=== PATIENT | female | born 1980 | race Caucasian/White ===

== ENCOUNTER 2019-02-02 00:51 | Inpatient (IN) | payer SELFPAY ==
[~2019-02-02] VITALS: Ht 152.4 cm; Wt 70.8 kg
[2019-02-02 01:16] VITALS: BP_SYST 123
--- NOTE | 2019-02-02 01:42 | NUR ---
Patient to ER bed 03 to gown for evaluation. Side rails up. Report given to YANIRA Correa.
--- NOTE | 2019-02-02 01:48 | NUR ---
patient arrived AOx4 from home with c/o lower backpain x 3 weeks that has gotten worse. patient states she also had RLQ abd pain. patient denies painful urination or otherwise. patient admits to pain twisting and lifting feet. patient has a stable gait. patient states she vomited x 1 at home and has nausa. however she has not vomitted here. no other complaint or injury at this time.
[2019-02-02 02:28] LABS: BILIRUBIN,URINE NEGATIVE (NEGATIVE); CLARITY/URINE CLEAR (CLEAR); COLOR,URINE YELLOW (YELLOW); GLUCOSE,URINE NEGATIVE (NEGATIVE); KETONES,URINE NEGATIVE (NEGATIVE); LEUKOCYTE ESTERASE ,URINE 1+ (NEGATIVE); NITRITE, URINE NEGATIVE (NEGATIVE); PROTEIN URINE TRACE (NEGATIVE); UROBILINOGEN,URINE 0.2 (0.2-1.0)
[2019-02-02 02:29] LABS: BLOOD, URINE TRACE (NEGATIVE)
--- NOTE | 2019-02-02 02:29 | NUR ---
ER at bedside examining patient.
--- NOTE | 2019-02-02 02:30 | NUR ---
patient cleaning teeth at bedside stated pain is 9/10.
[2019-02-02 02:33] LABS: BACTERIA,URINE FEW /HPF (None Seen); CALCIUM OXALATE CRYSTALS,UR 50-70 /HPF (None Seen)
[2019-02-02 02:44] LABS: BASOPHILS # (AUTO) 0.1 K/uL (0.0-0.2); BASOPHILS % (AUTO) 0.7 % (0.0-2.0); EOSINOPHILS # (AUTO) 0.2 K/uL (0.0-0.4); EOSINOPHILS % (AUTO) 2.9 % (0.0-4.0); HEMATOCRIT 30.9 % (36-48); HEMOGLOBIN 10.2 g/dL (12.0-16.0); LYMPHOCYTES # (AUTO) 1.6 K/uL (1.0-5.5); LYMPHOCYTES % (AUTO) 22.1 % (20.5-51.5); MEAN CORPUSCULAR HEMOGLOBIN 28 pg (27-31); MEAN CORPUSCULAR HGB CONC 33 % (32-36); MEAN CORPUSCULAR VOLUME 84 fL (79.0-98.0); MONOCYTES # (AUTO) 0.5 K/uL (0.0-1.0); MONOCYTES % (AUTO) 7.1 % (1.7-9.3); NEUTROPHILS # (AUTO) 4.8 K/uL (1.8-7.7); NEUTROPHILS % (AUTO) 67.2 % (40.0-70.0); PLATELET COUNT (AUTO) 248 K/uL (130-430); RED BLOOD CELL COUNT(AUTO) 3.66 MIL/uL (4.2-6.2); RED CELL DISTRIBUTION WIDTH 17.7 % (9.0-15.0); WHITE BLOOD COUNT (AUTO) 7.1 K/uL (4.8-10.8)
--- NOTE | 2019-02-02 02:44 | NUR ---
# 18 gauge angiocath placed to RAC. Use of asceptic technique. Opsite placed over site. Blood return noted. Blood for lab drawn from site. Flushed with 10 cc of normal saline. No evidence of infiltration noted. Patient tolerated well.
[2019-02-02] MEDS ORDERED: MORPHINE 4 MG/ML INJ. SYRINGE IVP ONE (02:45)
[2019-02-02] MEDS ORDERED: NACL 0.9% 1,000 ML IV ONE (02:45)
[2019-02-02] MEDS ORDERED: ONDANSETRON HCL 4 MG/2 ML VIAL IVP ONE (02:45)
[2019-02-02 02:56] LABS: CALCIUM 8.2 mg/dL (8.4-11.0); CREATININE 0.72 mg/dL (0.55-1.30)
--- NOTE | 2019-02-02 03:00 | NUR ---
patient went to radiology
[2019-02-02 03:02] LABS: ALBUMIN 3.2 g/dL (3.4-4.8); TOTAL BILIRUBIN 0.1 mg/dL (0.0-1.0)
[2019-02-02 03:04] LABS: POTASSIUM 2.7 mmol/L (3.5-5.1)
--- NOTE | 2019-02-02 03:15 | NUR ---
patient stated "I'm itchy." MD notifed.
[2019-02-02] MEDS ORDERED: MAGNESIUM SULFATE 50 ML IV ONE (03:30)
[2019-02-02] MEDS ORDERED: cefTRIAXone 1 GM IVPB PREMIX 50 ML IV ONE (03:45)
[2019-02-02] MEDS ORDERED: POTASSIUM CHLORIDE 20 MEQ TAB.PRT.SR PO ONE ×2 (03:45→12:30)
[2019-02-02] MEDS ORDERED: DIPHENHYDRAMINE HCL 25 MG CAPSULE PO ONE (04:00)
[2019-02-02] MEDS ORDERED: HYDR200T80 PO (04:37)
[2019-02-02] MEDS ORDERED: DULO60CA41 PO (04:37)
[2019-02-02] MEDS ORDERED: HYDR-4274 PO (04:38)
--- NOTE | 2019-02-02 04:38 | NUR ---
Medication reconciliation completed with information provided by PATIENT. Any prior medication reconciliation on file was reviewed and corrected.
--- NOTE | 2019-02-02 05:15 | NUR ---
ADMIT NOTE Received pt from ER to the floor with a diagnosis of hypokalemia. Admission process initiated. patient oriented to pain management, safety and call light-teach back done.
--- NOTE | 2019-02-02 05:15 | NUR ---
Transfer to Telemetry via ACLS protocol. Licensed nurse present. IV present no signs or symptoms of infiltration.
--- NOTE | 2019-02-02 05:15 | NUR ---
Patient will be admitted to care of Dr. Gomez. Admitted to Telemetry unit. Will go to room 117B. Belongings list completed. Summary report printed. Report will be given at bedside.
[2019-02-02 05:25] VITALS: BP_SYST 137
--- NOTE | 2019-02-02 06:30 | NUR ---
ADMISSION ASSESSMENT DONE. COMFORTABLE THIS TIME. MGSO4 RIDER STILL INFUSING. CALL LIGHT WITHIN REACH. BED IN LOW POSITION,. WILL GIVE REPORT TO AM RN.
--- NOTE | 2019-02-02 07:00 | NUR ---
CLOSING: ENDORSED CARE TO AM RN. PATIENT RESTING QUITELY. CALL LIGHT WITHIN REACH. BED IN LOW POSITION.
[2019-02-02 08:00] VITALS: BP_SYST 109
[2019-02-02] MEDS: POTASSIUM CHLORIDE 20 MEQ TAB.PRT.SR PO SCH ×2 (09:10→20:46)
[2019-02-02] MEDS ORDERED: NITROFURANTOIN MONOHYD/M-CRYST 100 MG CAPSULE PO ONE (11:30)
[2019-02-02 11:58] LABS: BASOPHILS % (AUTO) 0.7 % (0.0-2.0); EOSINOPHILS # (AUTO) 0.3 K/uL (0.0-0.4); EOSINOPHILS % (AUTO) 4.6 % (0.0-4.0); HEMATOCRIT 31.9 % (36-48); HEMOGLOBIN 10.5 g/dL (12.0-16.0); LYMPHOCYTES # (AUTO) 1.3 K/uL (1.0-5.5); LYMPHOCYTES % (AUTO) 20.8 % (20.5-51.5); MEAN CORPUSCULAR HEMOGLOBIN 28 pg (27-31); MEAN CORPUSCULAR HGB CONC 33 % (32-36); MEAN CORPUSCULAR VOLUME 85 fL (79.0-98.0); MONOCYTES # (AUTO) 0.4 K/uL (0.0-1.0); MONOCYTES % (AUTO) 7.3 % (1.7-9.3); NEUTROPHILS % (AUTO) 66.6 % (40.0-70.0); PLATELET COUNT (AUTO) 243 K/uL (130-430); RED BLOOD CELL COUNT(AUTO) 3.75 MIL/uL (4.2-6.2); RED CELL DISTRIBUTION WIDTH 17.7 % (9.0-15.0)
[2019-02-02 12:13] LABS: CALCIUM 8.6 mg/dL (8.4-11.0); CREATININE 0.56 mg/dL (0.55-1.30); POTASSIUM 3.4 mmol/L (3.5-5.1)
[2019-02-02] MEDS ORDERED: MORPHINE SULFATE 30 MG Immediate Release TABLET PO PRN (12:30)
[2019-02-02] MEDS ORDERED: ONDANSETRON HCL 4 MG/2 ML VIAL IVP PRN (12:30)
[2019-02-02] MEDS ORDERED: TAMSULOSIN HCL 0.4 MG CAP PO ONE (12:30)
[2019-02-02] MEDS ORDERED: ACETAMINOPHEN 325 MG TABLET PO PRN (12:30)
[2019-02-02] MEDS ORDERED: DOXYCYCLINE HYCLATE 100 MG CAPSULE PO ONE (12:45)
[2019-02-02] MEDS: MORPHINE 4 MG/ML INJ. SYRINGE IVP PRN ×3 (12:49→21:59)
[2019-02-02] MEDS: cefTRIAXone 1 GM in D5W 50 ML IV SCH (12:54)
[2019-02-02] MEDS: LR 1,000 ML IV SCH (13:09)
[2019-02-02 14:11] VITALS: BP_SYST 111
[2019-02-02 15:28] VITALS: BP_SYST 126
--- NOTE | 2019-02-02 18:25 | NUR ---
Wayne Gomez s/w Sandra
--- NOTE | 2019-02-02 19:30 | NUR ---
Opening Note Received patient awake, AOx4, resting in bed. No s/sx of distress, non-labored breathing on room air. IV to LAC. Safety precautions maintained. Instructed on use of call light
[2019-02-02 20:00] VITALS: BP_SYST 118
[2019-02-02] MEDS: DOXYCYCLINE HYCLATE 100 MG CAPSULE PO SCH (20:46)
[2019-02-02] MEDS: TAMSULOSIN HCL 0.4 MG CAP PO SCH (20:47)
[2019-02-02] MEDS: DIPHENHYDRAMINE INJ 50 MG/ML VIAL IVP PRN (20:47)
[2019-02-02] MEDS ORDERED: NITROFURANTOIN MONOHYD/M-CRYST 100 MG CAPSULE PO SCH (21:00)
[2019-02-02] MEDS ORDERED: POTASSIUM CHLORIDE 20 MEQ TAB.PRT.SR PO SCH (21:00)
--- NOTE | 2019-02-02 23:00 | NUR ---
C/0 of pain Reported severe pain and given Morphine for severe pain as ordered, will monitor.
--- NOTE | 2019-02-03 00:30 | NUR ---
Resting Patient is resting w/ eyes closed. No sign of distress noted, non - labored breathing. IVF infusing well. Call light w/in reach. Will monitor.
--- NOTE | 2019-02-03 01:40 | NUR ---
IVF IVF fluids empty, replaced with new bag. Infusing as ordered.
[2019-02-03] MEDS: LR 1,000 ML IV SCH (01:48)
[2019-02-03] MEDS: MORPHINE 4 MG/ML INJ. SYRINGE IVP PRN ×3 (02:00→14:05)
--- NOTE | 2019-02-03 02:00 | NUR ---
c/o Pain Reported severe pain to right abdomen, flank and back. Given Morphine for severe pain as ordered. Call light w/in reach.
[2019-02-03 02:12] VITALS: BP_SYST 110
--- NOTE | 2019-02-03 04:30 | NUR ---
c/o Itching Reporting itching and was given benadryl as ordered.
[2019-02-03] MEDS: DIPHENHYDRAMINE INJ 50 MG/ML VIAL IVP PRN ×2 (04:43→10:59)
[2019-02-03 07:05] LABS: BASOPHILS % (AUTO) 1.1 % (0.0-2.0); EOSINOPHILS # (AUTO) 0.2 K/uL (0.0-0.4); EOSINOPHILS % (AUTO) 5.2 % (0.0-4.0); HEMATOCRIT 29.7 % (36-48); HEMOGLOBIN 9.6 g/dL (12.0-16.0); LYMPHOCYTES # (AUTO) 1.5 K/uL (1.0-5.5); LYMPHOCYTES % (AUTO) 33.8 % (20.5-51.5); MEAN CORPUSCULAR HEMOGLOBIN 28 pg (27-31); MEAN CORPUSCULAR HGB CONC 33 % (32-36); MEAN CORPUSCULAR VOLUME 86 fL (79.0-98.0); MONOCYTES # (AUTO) 0.4 K/uL (0.0-1.0); MONOCYTES % (AUTO) 8.9 % (1.7-9.3); NEUTROPHILS # (AUTO) 2.3 K/uL (1.8-7.7); PLATELET COUNT (AUTO) 214 K/uL (130-430); RED BLOOD CELL COUNT(AUTO) 3.46 MIL/uL (4.2-6.2); RED CELL DISTRIBUTION WIDTH 17.5 % (9.0-15.0); WHITE BLOOD COUNT (AUTO) 4.5 K/uL (4.8-10.8)
--- NOTE | 2019-02-03 07:14 | NUR ---
Nutrition Update Segun Scale 18 noted. Pt admitted for Hypokalemia Diet: Regular BMI: 30.5 kg/m2 RD to follow per nutrition care standards.
--- NOTE | 2019-02-03 07:40 | NUR ---
Closing note Needs met throughout shift, patient stable. No s/sx of distress. Endorsed report.
--- NOTE | 2019-02-03 07:45 | NUR ---
AM NOTES RECEIVED PT IN BED. A/OX4. PT C/O OF BACK PAIN 01/25. WILL MEDICATE PT ORDER. NOT IN ACUTE DISTRESS. IV FLUID INFUSING WELL. CALL LIGHT WITHIN REACH . SAFETY AND FALL PRECAUTIONS MAINTAINED. NEEDS ATTENDED. WILL CONTINUE TO MONITOR
[2019-02-03 07:55] VITALS: BP_SYST 111
[2019-02-03 07:57] LABS: ALANINE AMINOTRANSFERASE 7 U/L (12-78); ALBUMIN 2.7 g/dL (3.4-4.8); ASPARTATE AMINOTRANSFERASE 11 U/L (10-37); CALCIUM 8.4 mg/dL (8.4-11.0); CHLORIDE 108 mmol/L (98-107); CREATININE 0.65 mg/dL (0.55-1.30); FREE T4 (FREE THYROXINE) 0.6 ng/dL (0.6-1.6); GLUCOSE 89 mg/dL (70-99); POTASSIUM 4.5 mmol/L (3.5-5.1); SODIUM SERUM 138 mmol/L (136-145); THYROID STIMULATING HORMONE 2.55 uIu/mL (0.34-4.82); TOTAL BILIRUBIN 0.1 mg/dL (0.0-1.0); UREA NITROGEN, BLOOD 20 mg/dL (8-21)
[2019-02-03 08:05] LABS: ANION GAP < 3 (5-15); GFR AFRICAN AMERICAN 131 mL/min (>90)
[2019-02-03 08:20] LABS: ERYTHROCYTE SEDIMENTATION RATE 8 MM/HR (0-20)
[2019-02-03] MEDS: TAMSULOSIN HCL 0.4 MG CAP PO SCH (08:38)
[2019-02-03] MEDS: DOXYCYCLINE HYCLATE 100 MG CAPSULE PO SCH (08:38)
[2019-02-03] MEDS: POTASSIUM CHLORIDE 20 MEQ TAB.PRT.SR PO SCH (08:39)
--- NOTE | 2019-02-03 08:43 | NUR ---
PAIN PT C/ OF BACK PAIN 02/25. MEDICATED WITH PAIN MED ORDER. NOT IN ACUTE DISTRESS.WILL CONTINUE TO MONITOR
[2019-02-03] MEDS: cefTRIAXone 1 GM in D5W 50 ML IV SCH (10:59)
--- NOTE | 2019-02-03 12:00 | NUR ---
rounds pt stable not in acute distress. resting comfortably will continue to monitor
[2019-02-03 12:27] VITALS: BP_SYST 117
--- NOTE | 2019-02-03 14:05 | NUR ---
pain pt c/o of back pain 01/25. medicated with pain med morhine as ordered. iv infusing well.safety and fall precautions maintained.will continue to monitor
[2019-02-03 16:00] VITALS: BP_SYST 115
[2019-02-03] MEDS ORDERED: DOXY100T2 PO (16:43)
[2019-02-03] MEDS ORDERED: TAMS-11 PO (16:44)
--- NOTE | 2019-02-03 17:00 | NUR ---
md visit dr monteiro here seen renal ultrasound report. order received for discharge
[2019-02-03 18:13] VITALS: BP_SYST 106
--- NOTE | 2019-02-03 18:45 | NUR ---
D/C Patient Patient given medication reconciliation form and D/C instructions. Exit Care provided. Patient verbalized understanding. MD discussed with patient the results and treatment provided. Ambulatory with steady gait for discharge to home. Patient in stable condition, ID band removed. IV catheter removed, intact and dressing applied, no active bleeding. Rx of doxycycline and flomax given. Patient educated on pain management. All belongings sent with patient.pt left home with
[2019-02-03] MEDS ORDERED: POTASSIUM CHLORIDE 20 MEQ TAB.PRT.SR PO SCH (21:00)
== END 2019-02-03 18:45 | disposition home or self-care (01) | DRG 690 ==
LOC: SED 00:51 → STU 04:58 → SMU 13:13
PROVIDERS: ADMIT Internal Medicine; ATTEND Internal Medicine
DX: N13.6 Pyonephrosis (principal); E87.6 Hypokalemia; G43.909 Migraine, unspecified, not intractable, without status migrainosus; F32.9 Major depressive disorder, single episode, unspecified; M79.7 Fibromyalgia; M32.9 Systemic lupus erythematosus, unspecified; N20.0 Calculus of kidney; D64.9 Anemia, unspecified; F41.9 Anxiety disorder, unspecified; Z88.8 Allergy status to other drugs, medicaments and biological substances; Z88.1 Allergy status to other antibiotic agents; Z79.899 Other long term (current) drug therapy
CPT/HCPCS: 36415; 72128; 72131; 74150-TC; 76770; 80048; 80053; 81000-TC; 83690-TC; 83735-TC; 84439; 84443-TC; 84703; 85025; 85651-TC; 87086; 93005; 96361; 96365; 96368; 96375; 99285; J0696; J1200; J2270; J2405; J3475; J7030; J7060; J7120; Q0163

== ENCOUNTER 2019-07-23 23:26 | Emergency (ER) | payer MEDICAID ==
[~2019-07-23] VITALS: Ht 152.4 cm; Wt 68.0 kg
[~2019-07-23 23:26] MED LIST: DOXY100T2 PO; DULO60CA41 PO; HYDR-4274 PO; HYDR200T80 PO; TAMS-11 PO
[2019-07-23 23:30] VITALS: BP_SYST 153
--- NOTE | 2019-07-23 23:43 | NUR ---
Patient to ER bed 8 to gown for evaluation. Side rails up. Report given to MIHAI DOYLE.
--- NOTE | 2019-07-24 00:25 | NUR ---
Dr. Glover bedside for pt eval
--- NOTE | 2019-07-24 00:35 | NUR ---
Pt BIB family to ED C/O stuck richard for 5 days. She reports of low abdominal pain, nausea and vomiting, dysuria and urinary retention secondary to the pain VSS no s/s of acute distress Resting on [employer] rails up
[2019-07-24] MEDS ORDERED: HYDROcodone/ACETAMIN 5-325 MG TAB (NORCO/ VICODIN) PO ONE (00:45)
--- NOTE | 2019-07-24 01:44 | NUR ---
Dr. Glover bedside for procedure to remove pelvic FB. Pt in stable condition
--- NOTE | 2019-07-24 01:45 | NUR ---
At bedside assisting Dr. 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
--- NOTE | 2019-07-24 01:50 | NUR ---
Dr. Glover bedside to update pt on FB had already been removed
[2019-07-24] MEDS ORDERED: ACETAMINOPHEN/CODEINE 300 MG-30 MG TABLET PO ONE (02:00)
[2019-07-24 02:20] VITALS: BP_SYST 142
--- NOTE | 2019-07-24 02:20 | NUR ---
Patient given written and verbal discharge instructions and verbalizes understanding. ER MD discussed with patient the results and treatment provided. Patient in stable condition. ID arm band removed. Rx of Flagyl given. Patient educated on pain management and to follow up with PMD. Pain Scale 0/10 Opportunity for questions provided and answered. Medication side effect fact sheet provided.
== END 2019-07-24 02:20 | disposition home or self-care (01) ==
LOC: SED 23:26
DX: N76.0 Acute vaginitis (principal); Z88.1 Allergy status to other antibiotic agents; Z88.8 Allergy status to other drugs, medicaments and biological substances; Z79.899 Other long term (current) drug therapy
CPT/HCPCS: 99283

== ENCOUNTER 2021-04-23 00:40 | Emergency (ER) | payer MEDICAID ==
[~2021-04-23] VITALS: Ht 152.4 cm; Wt 79.4 kg
[2021-04-23 00:58] VITALS: BP_SYST 155
--- NOTE | 2021-04-23 01:03 | NUR ---
PAtient ambulatory to bed 3 for evaluation and treatment
--- NOTE | 2021-04-23 01:19 | NUR ---
Urine HCG done, results negative GTIN: [id number] LOT: [id number] EXP: 2022-08-15 Urine specimen collected and analyzed in LAB. Results to be given to RAMO BARNHART.
[2021-04-23] MEDS ORDERED: ONDANSETRON HCL 4 MG/2 ML VIAL IVP ONE (03:30)
[2021-04-23] MEDS ORDERED: NACL 0.9% 1,000 ML IV ONE (03:30)
[2021-04-23] MEDS ORDERED: MAG HYDROX/AL HYDROX/SIMETH 30 ML, LIDOCAINE VISCOUS 2% 15ML (PO) 15 ML, DICYCLOMINE HC... PO ONE ×3 (03:30)
--- NOTE | 2021-04-23 03:30 | NUR ---
patient medicated as ordered. Will observe for any adverse reaction. bed to low position sr up. will observe for any adverse reaction.
--- NOTE | 2021-04-23 03:30 | NUR ---
# 20 gauge angiocath placed to lac. Use of asceptic technique. Opsite placed over site. Blood return noted. Blood for lab drawn from site. Flushed with 10 cc of normal saline. No evidence of infiltration noted. Patient tolerated well. Medicated w/ gi cocktail and zofran per MD orders. IVF infusing with no s/s of infiltration at this time. Will cont to monitor and observe for any adverse reaction.
[2021-04-23] MEDS ORDERED: ONDA-8 TL (03:33)
[2021-04-23] MEDS ORDERED: DICY10SO PO (03:33)
[2021-04-23] MEDS ORDERED: OMEP40CA20 PO (03:33)
[2021-04-23 03:42] LABS: BILIRUBIN,URINE NEGATIVE (NEGATIVE); BLOOD, URINE NEGATIVE (NEGATIVE); CLARITY/URINE CLEAR (CLEAR); COLOR,URINE YELLOW (YELLOW); GLUCOSE,URINE NEGATIVE (NEGATIVE); KETONES,URINE NEGATIVE (NEGATIVE); LEUKOCYTE ESTERASE ,URINE NEGATIVE (NEGATIVE); NITRITE, URINE NEGATIVE (NEGATIVE); PROTEIN URINE NEGATIVE (NEGATIVE); UROBILINOGEN,URINE 0.2 (0.2-1.0)
[2021-04-23 03:49] LABS: BASOPHILS % (AUTO) 0.3 % (0.0-2.0); EOSINOPHILS # (AUTO) 0.2 K/uL (0.0-0.4); EOSINOPHILS % (AUTO) 1.9 % (0.0-4.0); HEMATOCRIT 31.7 % (36-48); LYMPHOCYTES # (AUTO) 1.6 K/uL (1.0-5.5); LYMPHOCYTES % (AUTO) 16.3 % (20.5-51.5); MEAN CORPUSCULAR HEMOGLOBIN 25 pg (27-31); MEAN CORPUSCULAR HGB CONC 32 % (32-36); MEAN CORPUSCULAR VOLUME 78 fL (79.0-98.0); MONOCYTES # (AUTO) 0.6 K/uL (0.0-1.0); MONOCYTES % (AUTO) 6.3 % (1.7-9.3); NEUTROPHILS # (AUTO) 7.5 K/uL (1.8-7.7); NEUTROPHILS % (AUTO) 75.2 % (40.0-70.0); PLATELET COUNT (AUTO) 263 K/uL (130-430); RED BLOOD CELL COUNT(AUTO) 4.05 MIL/uL (4.2-6.2); RED CELL DISTRIBUTION WIDTH 17.3 % (9.0-15.0); WHITE BLOOD COUNT (AUTO) 9.9 K/uL (4.8-10.8)
[2021-04-23] MEDS ORDERED: MORPHINE 4 MG INJ. 4 MG/ML VIAL IVP ONE (04:30)
--- NOTE | 2021-04-23 04:38 | NUR ---
Medicated w/ 4mg of morphine ivp per MD orders. IVF infusing with no s/s of infiltration at this time. Will cont to monitor and observe for any adverse reaction. bed to low position sr up, continue to monitor.
[2021-04-23] MEDS ORDERED: MORPHINE 4 MG INJ. 4 MG/ML VIAL ONE (04:40)
[2021-04-23] MEDS ORDERED: DIPHENHYDRAMINE INJ 50 MG/ML VIAL ONE (04:55)
[2021-04-23] MEDS ORDERED: DIPHENHYDRAMINE INJ 50 MG/ML VIAL IVP ONE (05:00)
[2021-04-23 06:05] VITALS: BP_SYST 144
--- NOTE | 2021-04-23 06:05 | NUR ---
Patient given written and verbal discharge instructions and verbalizes understanding. ER MD discussed with patient the results and treatment provided. Patient in stable condition. ID arm band removed. IV catheter removed intact and dressing applied, no active bleeding. Rx of Dicyclomine, Omeprazole, and Zofran given. Patient educated on pain management and to follow up with PMD. Pain Scale 0/10 Opportunity for questions provided and answered. Medication side effect fact sheet provided.
[2021-04-23 07:14] LABS: CALCIUM 8.8 mg/dL (8.4-11.0); CREATININE 0.63 mg/dL (0.55-1.30)
[2021-04-23 07:15] LABS: ALBUMIN 3.5 g/dL (3.4-4.8); TOTAL BILIRUBIN 0.1 mg/dL (0.0-1.0)
== END 2021-04-23 06:05 | disposition home or self-care (01) ==
LOC: SED 00:40
DX: K29.70 Gastritis, unspecified, without bleeding (principal); Z88.1 Allergy status to other antibiotic agents; Z79.899 Other long term (current) drug therapy
CPT/HCPCS: 36415; 74018; 80053; 81003; 81025; 83690; 85025; 96374; 96375; 99284; J1200; J2001; J2270; J2405

== ENCOUNTER 2023-02-14 14:35 | Emergency (ER) | payer MEDICAID ==
[~2023-02-14] VITALS: Ht 152.4 cm; Wt 81.6 kg
[~2023-02-14 14:35] MED LIST changes: +DICY10SO PO; -DULO60CA41 PO; +DULO60CA42 PO; +OMEP40CA20 PO; +ONDA-8 TL
[2023-02-14 14:52] VITALS: BP_SYST 134; PULSE 74; RESP 20; TEMP 97.5; O2SAT 99
[2023-02-14] MEDS ORDERED: ALBUTEROL SULFATE 0.083% 2.5 MG/3 ML VIAL.NEB INH ONE (15:00)
[2023-02-14] MEDS ORDERED: KETOROLAC TROMETHAMINE 60 MG/2 ML VIAL IM ONE (16:00)
[2023-02-14] MEDS ORDERED: DEC4 PO (16:16)
[2023-02-14] MEDS ORDERED: NIRM1TAB PO (16:16)
[2023-02-14] MEDS ORDERED: NAPR-690 PO (16:16)
[2023-02-14] MEDS ORDERED: MORPHINE 4 MG INJ. 4 MG/ML VIAL IM ONE (16:30)
[2023-02-14 16:32] VITALS: BP_SYST 128; PULSE 76; RESP 16; TEMP 98.6; O2SAT 98
== END 2023-02-14 16:34 | disposition home or self-care (01) ==
LOC: SED 14:35
DX: U07.1 COVID-19 (principal); Z88.1 Allergy status to other antibiotic agents; Z88.8 Allergy status to other drugs, medicaments and biological substances; Z79.899 Other long term (current) drug therapy
CPT/HCPCS: 99283; 71045; 94640; 96372; J2270

== ENCOUNTER 2023-04-20 21:46 | Emergency (ER) | payer MEDICAID ==
[~2023-04-20] VITALS: Ht 152.4 cm; Wt 83.9 kg
[~2023-04-20 21:46] MED LIST changes: +DEC4 PO; +NAPR-690 PO; +NIRM1TAB PO
[2023-04-20 21:48] VITALS: BP_SYST 159; PULSE 65; RESP 21; TEMP 97.9; O2SAT 99
[2023-04-20 21:53] VITALS: TEMP 97.8
[2023-04-20 22:21] LABS: BASOPHILS # (AUTO) 0.1 K/uL (0.0-0.2); BASOPHILS % (AUTO) 0.8 % (0.0-2.0); EOSINOPHILS # (AUTO) 0.4 K/uL (0.0-0.4); EOSINOPHILS % (AUTO) 4.8 % (0.0-4.0); HEMATOCRIT 33.9 % (36-48); HEMOGLOBIN 10.9 g/dL (12.0-16.0); LYMPHOCYTES # (AUTO) 2.2 K/uL (1.0-5.5); LYMPHOCYTES % (AUTO) 27.5 % (20.5-51.5); MEAN CORPUSCULAR HEMOGLOBIN 26 pg (27-31); MEAN CORPUSCULAR HGB CONC 32 % (32-36); MEAN CORPUSCULAR VOLUME 83 fL (79.0-98.0); MONOCYTES # (AUTO) 0.6 K/uL (0.0-1.0); MONOCYTES % (AUTO) 7.9 % (1.7-9.3); NEUTROPHILS # (AUTO) 4.7 K/uL (1.8-7.7); PLATELET COUNT (AUTO) 281 K/uL (130-430); RED CELL DISTRIBUTION WIDTH 17.9 % (9.0-15.0)
[2023-04-20 22:29] LABS: ALBUMIN 3.4 g/dL (3.4-4.8); CALCIUM 9.1 mg/dL (8.4-11.0); CREATININE 0.84 mg/dL (0.55-1.30); POTASSIUM 3.2 mmol/L (3.5-5.1); TOTAL PROTEIN, SERUM 7.2 g/dL (6.4-8.3)
[2023-04-20 22:43] LABS: TOTAL BILIRUBIN 0.1 mg/dL (0.0-1.0)
[2023-04-20] MEDS ORDERED: METOCLOPRAMIDE HCL 10 MG/2 ML VIAL IVP ONE (22:45)
[2023-04-20] MEDS ORDERED: DIPHENHYDRAMINE INJ 50 MG/ML VIAL IVP ONE (22:45)
[2023-04-20] MEDS ORDERED: METO-290 PO (23:32)
[2023-04-21] VITALS: BP_SYST 114; PULSE 62; RESP 24; O2SAT 95
== END 2023-04-21 | disposition home or self-care (01) ==
LOC: SED 21:46
DX: R29.810 Facial weakness (principal); R51.9 Headache, unspecified; Z88.1 Allergy status to other antibiotic agents; Z88.6 Allergy status to analgesic agent; Z88.8 Allergy status to other drugs, medicaments and biological substances; Z79.899 Other long term (current) drug therapy
CPT/HCPCS: 99285; 96374; 70450; 96375; 80053; 85025; 36415; 76376; J1200; J2765